=== PATIENT | male | born 1970 | race African-American/Black ===

== ENCOUNTER 2024-02-17 23:40 | Emergency (ER) | payer SELFPAY ==
--- NOTE | ~2024-02-17 | CT_ITS ---
EXAMINATION: CT HEAD WITHOUT CONTRAST (STROKE PROTOCOL) CLINICAL INFORMATION: Right-sided weakness, dysarthric speech COMPARISON: None available. TECHNIQUE: Contiguous axial imaging was performed from the skull base to vertex without intravenous administration of contrast. This CT examination was performed using dose optimization techniques as appropriate, variously including the following: *Automated exposure control *Adjustment of mA and/or kV according to patient size (this includes techniques or standardized protocols for targeted exams where dose is matched to indication/reason for exam; i.e. extremities or head) *Use of iterative reconstruction technique DLP: 808 mGy-cm FINDINGS: There is an acute intraparenchymal hemorrhage in the left basal ganglia measuring 4.1 x 1.6 x 2.8 cm. There is a rim of localized edema with slight mass effect and 0.2 cm of rightward midline shift. There is no evidence of acute territorial infarction. Muhammad to white matter differentiation is well preserved. No extra-axial fluid collections are identified. The ventricles are normal in size. There is mild periventricular white matter hypoattenuation consistent with chronic small vessel ischemic disease. Hypoattenuating focus in the right basal ganglia is suggestive of a chronic lacunar infarct. No acute fracture is seen. There is right occipital scalp soft tissue thickening with punctate hyperdensities, which may be chronic. The mastoid air cells and visualized portions of the paranasal sinuses are well-aerated. CT/CT head for stroke IMPRESSION: 1. Acute intraparenchymal hemorrhage in the left basal ganglia measuring 4.1 x 1.6 x 2.8 cm. Mild surrounding edema and 0.2 cm of rightward midline shift. 2. Soft tissue thickening in the right scalp with multiple punctate hyperdensities/foreign bodies, which may be chronic. Clinical correlation recommended. This critical result was discussed with Dr. Hardy on 02/18/2024 12:08 AM, and it was ascertained that the content and urgency of the report was understood at the time of direct communication.
--- NOTE | 2024-02-17 23:47 | ED_ITS ---
HPI - Neuro Symptoms/Deficit General Chief Complaint: Stroke Stated Complaint: ? stroke Time Seen by Provider: 02/17/24 23:47 Source: patient and family () Mode of arrival: wheelchair Limitations: other (Dysarthric speech) History of Present Illness HPI Narrative: 53-year-old male with a history of hypertension and stroke who was brought to emergency department by his for evaluation of right-sided weakness and difficulty speaking. According to the the patient has had many strokes in the past and had a large stroke in 2019 with right-sided weakness. She states that his right-sided weakness did improve over time with physical therapy but was never back to normal. The patient was sitting outside on the porch and around 22:30 hours he told his that he thought that the cold air was messing with with his nerves. He put on socks in warmer close and went back outside. His then noted that he had right arm weakness and he was ?not making sense ?. She was concerned that he was having a stroke and brought him to the emergency department for evaluation. From triage she was brought immediately back into the emergency department and I evaluated him in a wheelchair. The patient was oriented to person, place, he knew the month but did not give his correct age. His speech is this arthritic but comprehensible. Patient was sent immediately to the CT scan for CT scan of the head without IV contrast then brought back to a room in the emergency department. On the CT scan the patient has an obvious left intraparenchymal bleed. Related Data Allergies Allergy/AdvReac Type Severity Reaction Status Date / Time No Known Allergies Allergy Verified 02/18/24 00:17 [No Known Allergies*] Review of Systems 2 Review of Systems: Yes Other (Difficult to obtain secondary dysarthric speech) [facility] Past Medical History [facility] Narrative: Past medical history: Hypertension-not on medications, stroke 2019 treated at [facility]. Social history: He lives at home with his . He does smoke cigarettes. He denies alcohol use. He does smoke marijuana. He denies any other drug use. Social History Social History Smoked in Last 30 Days: Yes Use of substances other than those prescribed or required for medical reasons: No Substance Use Type: Marijuana Advance Directives: No Advance Directives Information Provided: No Physical Exam 2 Vital Signs: Vital Signs: Last Vital Signs Temp 98.2 F 02/18/24 00:29 Pulse 89 02/18/24 00:57 Resp 18 02/18/24 00:29 BP 187/101 H 02/18/24 00:57 Pulse Ox 97 02/18/24 00:29 O2 Del Method Room Air 02/18/24 00:29 BMI result Body Mass Index 33.9 Initial blood pressure 240/130, repeat blood pressure 210/122, heart rate 80, respiratory 18, O2 saturation 97% on room air Exam: General: Awake, alert, obvious right upper and lower extremity weakness with dysarthric speech Head: Normocephalic, atraumatic EENT: PERRL, Lids normal, sclera normal, conjunctiva normal, nose normal , ears normal, throat without erythema or exudates Neck: Supple, no adenopathy Lung: breath sounds symmetric, no wheezing, rales or rhonchi Chest: symmetric movement, nontender Heart: regular rate and rhythm, normal S1, S2 no murmurs or rubs Abdomen: soft, non-tender, nondistended, normal bowel sounds Back: no vertebral tenderness, no CVAT Extremities: no deformities, moves all extremities symmetrically Neuro: General: Awake, alert, dysarthric speech, able to tell me his name, knew the month but did not know his age Cranial nerves 2-12: Right facial droop Strength: Minimal movement of the right upper extremity, weakness of the right lower extremity compared to left Psych: Pleasant, cooperative Medications Administered Generic Name Dose Route Start Last Admin Trade Name Freq PRN Reason Stop Dose Admin Nicardipine HCl 25 mg/ Sodium 260 mls @ 0 mls/hr 02/18/24 00:15 02/18/24 00:57 Chloride IVCONT 10 mg/hr .Q0M ANDRIA 104 mls/hr Titration Protocol Per Protocol Medical Decision Making Medical Decision Making [facility] Narrative: 53-year-old male with a history of hypertension not on medications, stroke 2021 with right-sided symptoms, tobacco use disorder, marijuana use disorder, who presents emergency department for evaluation of dysarthric speech, right facial droop, right upper extremity weakness greater than right lower extremity weakness with last well-known time 22:30 hours. Presentation to the emergency department the patient had stroke-like symptoms and was brought immediately to CT scan for CT of the head without IV contrast. CT scan revealed acute intraparenchymal hemorrhage in the left basal ganglion measuring 4.1 x 1.6 x 2.8 cm. Mild surrounding edema with 0.2 cm of rightward midline shift. Patient's blood pressure was significantly elevated at 240/130. Repeat blood pressure was also elevated at 2 10/122. Patient was started on nicardipine with parameters to lower his systolic blood pressure to 140-160. Differential diagnosis: ?Includes but is not limited to stroke, intracranial bleed, electrolyte abnormalities, anemia Following evaluation was ordered: CBC, BMP, liver panel, PT/INR, PTT, troponin, point of care glucose, urinalysis, drug screen, ethanol level, CT scan of the brain without IV contrast, EKG Patient was initially treated with the following: Nicardipine drip titrate to systolic blood pressure 142/1 6 Course: 01:04 My interpretation patient's laboratory evaluation is as follows: WBC normal 4900, no anemia with an H&H of 15 and 45.5. Platelet count was normal 254,000. PT/INR PTT were normal. CMP was unremarkable except for glucose of 116. Ethanol was below detectable limits. Urinalysis and urine tox screen are pending. I did discuss the patient's presentation with the attending narcotics agent in the neuro ICU at [facility], Dr. Rosales and she accept the patient as an ED to ICU transfer. Patient is on a nicardipine drip and blood pressure is now down to 180/90, we will continue to titrate the drip in order to get the patient's systolic blood pressure between 140 and 160. Patient will be transferred by ALS ambulance Admission/Observation Consideration of admission/observation: Escalation of care including admission/observation considered Consult Healthcare Provider Management of the patient was discussed with: Grocery Clerk [facility] Neuro ICU narcotics agent, Dr. Albright Lab Data [facility] Lab Attestation statement: I reviewed the patient's lab results. 02/18/24 00:09 02/18/24 00:09 Labs: Lab Results 02/18/24 02/18/24 02/18/24 Range/Units 00:09 00:09 00:23 WBC 4.9 (4.8-10.8) X10*3/uL RBC 4.93 (4.60-5.80) X10*6/uL Hgb 15.0 (14.0-18.0) g/dl Hct 45.5 (42.0-52.0) % MCV 92.3 (80.0-98.0) fL MCH 30.4 (27.0-33.0) pg MCHC 33.0 (31.0-36.0) g/dl RDW 14.2 (11.0-16.0) % Plt Count 254 (160-400) X10*3/uL MPV 10.7 (9.4-12.4) fL Immature Gran % (Auto) 0.2 (0.0-0.4) % Neut % (Auto) 31.0 L (45-73) % Lymph % (Auto) 54.7 H (20-40) % Cla[place] % (Auto) 9.2 (2-11) % Eos % (Auto) 3.7 (0-4) % Baso % (Auto) 1.2 (0-2) % Lymph # (Auto) 2.7 (1.2-4.9) X10*3/uL [place] # (Auto) 0.5 (0.1-1.2) X10*3/uL Eos # (Auto) 0.2 (0.0-0.4) X10*3/uL Baso # (Auto) 0.1 (0.0-0.2) X10*3/uL Abs Immat Gran (auto) 0.01 (0.00-0.03) X10*3/uL Absolute Neuts (auto) 1.5 L (2.0-8.3) x10*3/uL Absolute Nucleated RBC 0.000 (0.0-0.012) X10*3/uL Nucleated RBC % (auto) 0.0 (0.0-0.2) /100WBC PT 10.7 L (11.1-13.3) SEC Whole Blood PT (11.1-13.5) sec INR 0.9 (0.9-1.1) Whole Blood INR (0.9-1.1) APTT 44.5 H (26.0-36.8) SEC Sodium 143 (135-145) mmol/L Potassium 4.5 (3.3-5.1) mmol/L Chloride 107 (96-108) mmol/L Carbon Dioxide 29 (22-29) mmol/L Anion Gap 12 (12-20) BUN 16 (9-16) mg/dL Creatinine 0.86 (0.5-1.4) mg/dL Estim Creat Clear Calc 124.6 Estimated GFR > 60 POC Glucose 111 (60-115) mg/dL Random Glucose 116 H Cancelled (60-115) mg/dL Calcium 9.9 (8.4-10.2) mg/dL Total Bilirubin 0.2 (0.0-1.0) mg/dL Direct Bilirubin < 0.2 (0.0-0.5) mg/dL AST 16 (5-37) U/L ALT 14 (0-40) U/L Alkaline Phosphatase 87 (39-117) U/L Total Creatine Kinase 305 H (38-174) U/L Troponin I High Sens 20.2 (<3.5-35.0) ng/L Total Protein 7.7 (6.5-8.0) g/dL Albumin 4.6 (3.5-5.0) g/dL Urine Color Urine Appearance Urine pH (5.0-9.0) Ur Specific Blackstone (1.005-1.025) Urine Protein (Neg-Trace) mg/dL Urine Glucose (UA) (Negative) mg/dL Urine Ketones (Negative) mg/dL Urine Blood (Negative) Urine Nitrite (Negative) Ur Leukocyte Esterase (Negative) Urine RBC (0-2) /HPF Urine WBC (0-5) /HPF Ur Squamous Epith Cells (0-2) /HPF Urine Bacteria (None Seen) Hyaline Casts (0-2) /LPF Ethyl Alcohol < 10 mg/dL 02/18/24 02/18/24 Range/Units 00:42 00:55 WBC (4.8-10.8) X10*3/uL RBC (4.60-5.80) X10*6/uL Hgb (14.0-18.0) g/dl Hct (42.0-52.0) % MCV (80.0-98.0) fL MCH (27.0-33.0) pg MCHC (31.0-36.0) g/dl RDW (11.0-16.0) % Plt Count (160-400) X10*3/uL MPV (9.4-12.4) fL Immature Gran % (Auto) (0.0-0.4) % Neut % (Auto) (45-73) % Lymph % (Auto) (20-40) % Clarendon % (Auto) (2-11) % Eos % (Auto) (0-4) % Baso % (Auto) (0-2) % Lymph # (Auto) (1.2-4.9) X10*3/uL [place] # (Auto) (0.1-1.2) X10*3/uL Eos # (Auto) (0.0-0.4) X10*3/uL Baso # (Auto) (0.0-0.2) X10*3/uL Abs Immat Gran (auto) (0.00-0.03) X10*3/uL Absolute Neuts (auto) (2.0-8.3) x10*3/uL Absolute Nucleated RBC (0.0-0.012) X10*3/uL Nucleated RBC % (auto) (0.0-0.2) /100WBC PT (11.1-13.3) SEC Whole Blood PT 12.7 (11.1-13.5) sec INR (0.9-1.1) Whole Blood INR 1.1 (0.9-1.1) APTT (26.0-36.8) SEC Sodium (135-145) mmol/L Potassium (3.3-5.1) mmol/L Chloride (96-108) mmol/L Carbon Dioxide (22-29) mmol/L Anion Gap (12-20) BUN (9-16) mg/dL Creatinine (0.5-1.4) mg/dL Estim Creat Clear Calc Estimated GFR POC Glucose (60-115) mg/dL Random Glucose (60-115) mg/dL Calcium (8.4-10.2) mg/dL Total Bilirubin (0.0-1.0) mg/dL Direct Bilirubin (0.0-0.5) mg/dL AST (5-37) U/L ALT (0-40) U/L Alkaline Phosphatase (39-117) U/L Total Creatine Kinase (38-174) U/L Troponin I High Sens (<3.5-35.0) ng/L Total Protein (6.5-8.0) g/dL Albumin (3.5-5.0) g/dL Urine Color Yellow Urine Appearance Clear Urine pH 6.5 (5.0-9.0) Ur Specific Blackstone 1.020 (1.005-1.025) Urine Protein Negative (Neg-Trace) mg/dL Urine Glucose (UA) Negative (Negative) mg/dL Urine Ketones Trace (Negative) mg/dL Urine Blood Negative (Negative) Urine Nitrite Negative (Negative) Ur Leukocyte Esterase Trace H (Negative) Urine RBC 0-2 (0-2) /HPF Urine WBC 0-5 (0-5) /HPF Ur Squamous Epith Cells 0-2 (0-2) /HPF Urine Bacteria None Seen (None Seen) Hyaline Casts 0-2 (0-2) /LPF Ethyl Alcohol mg/dL Independent Interpretation I performed an independent interpretation of an: EKG Interpretation: My interpretation patient's 12 EKG done at 00:16 hours is as follows: Normal sinus rhythm rate of 76, normal HI interval, QRS duration QTC interval, less than [address] segment depression in leads 2, 3 and AVF with inverted T-waves in leads 2, 3, AVF and V1 and V6-these could be secondary to ischemia or may be changes secondary to increased into her cranial pressure. Radiology Impression Discussion of test interpretation with radiology: I have reviewed the radiologist's reading. Radiologist Impression: EXAMINATION: CT HEAD WITHOUT CONTRAST (STROKE PROTOCOL) CLINICAL INFORMATION: Right-sided weakness, dysarthric speech FINDINGS: There is an acute intraparenchymal hemorrhage in the left basal ganglia measuring 4.1 x 1.6 x 2.8 cm. There is a rim of localized edema with slight mass effect and 0.2 cm of rightward midline shift. There is no evidence of acute territorial infarction. Muhammad to white matter differentiation is well preserved. No extra-axial fluid collections are identified. The ventricles are normal in size. There is mild periventricular white matter hypoattenuation consistent with chronic small vessel ischemic disease. Hypoattenuating focus in the right basal ganglia is suggestive of a chronic lacunar infarct. No acute fracture is seen. There is right occipital scalp soft tissue thickening with punctate hyperdensities, which may be chronic. The mastoid air cells and visualized portions of the paranasal sinuses are well-aerated. IMPRESSION: 1. Acute intraparenchymal hemorrhage in the left basal ganglia measuring 4.1 x 1.6 x 2.8 cm. Mild surrounding edema and 0.2 cm of rightward midline shift. 2. Soft tissue thickening in the right scalp with multiple punctate hyperdensities/foreign bodies, which may be chronic. Clinical correlation recommended. This critical result was discussed with Dr. Hardy on 02/18/2024 12:08 AM, and it was ascertained that the content and urgency of the report was understood at the time of direct communication. Dictated By: Cecil Dos Santos MD Independent Historian Clinical information obtained from an independent historian. History obtained from or confirmed by: Spouse Chronic Conditions Patient?s care impacted by: Hypertension Critical Care Time Critical Care Time Total Critical Care Time: 80 Discharge Plan Discharge Clinical Impression: Intracranial hemorrhage, Hypertensive urgency Patient Disposition: [facility] Hospital Transfer Details: [facility] neuro ICU, accepting attending is Dr. Rosales Print Language: Kazakh
--- NOTE | 2024-02-17 23:49 | ECG_ITS ---
Test Reason : BRAIN BLEED Blood Pressure : / mmHG Vent. Rate : 076 BPM Atrial Rate : 076 BPM P-R Int : 164 ms QRS Dur : 096 ms QT Int : 388 ms P-R-T Axes : 065 059 270 degrees QTc Int : 436 ms Normal sinus rhythm Minimal voltage criteria for LVH, may be normal variant ( Noble product ) ST & T wave abnormality, consider inferolateral ischemia Abnormal ECG No previous ECGs available Referred By: Usman Hardy Electronically Signed By:NAYELY HAYWARD MD
[2024-02-18] VITALS (8 sets, daily range): BP systolic 187–219; BP diastolic 101–127; PULSE 75–93; RESP 18–19; TEMP 36.8; O2SAT 97; BMI 33.9
[2024-02-18 00:17] LABS: MANUAL DIFF FLAG NO
[2024-02-18 00:20] LABS: Basophils Absolute Auto 0.1 X10*3/uL (0.0-0.2); Basophils Percent Auto 1.2 % (0-2); Eosinophils Absolute Auto 0.2 X10*3/uL (0.0-0.4); Eosinophils Percent Auto 3.7 % (0-4); Hematocrit 45.5 % (42.0-52.0); Imm Gran Abs Auto 0.01 X10*3/uL (0.00-0.03); Imm Gran Pct Auto 0.2 % (0.0-0.4); Lymphocytes Absolute Auto 2.7 X10*3/uL (1.2-4.9); Lymphocytes Percent Auto 54.7 % (20-40); Mean Corpuscular Hemoglobin 30.4 pg (27.0-33.0); Mean Corpuscular Volume 92.3 fL (80.0-98.0); Mean Platelet Volume 10.7 fL (9.4-12.4); Monocytes Absolute Auto 0.5 X10*3/uL (0.1-1.2); Monocytes Percent Auto 9.2 % (2-11); Neutrophils Absolute Auto 1.5 x10*3/uL (2.0-8.3); Platelet Count 254 X10*3/uL (160-400); Red Blood Count 4.93 X10*6/uL (4.60-5.80); Red Cell Distribution Width 14.2 % (11.0-16.0); White Blood Count 4.9 X10*3/uL (4.8-10.8)
[2024-02-18] MEDS: niCARdipine HCL 25 MG in 0.9 % Sodium Chloride 250 ML 52 MG IVCONT (00:25)
[2024-02-18 00:26] LABS: INTERNATIONAL NORM RATIO 0.9 (0.9-1.1); Prothrombin Time 10.7 SEC (11.1-13.3)
[2024-02-18 00:29] LABS: Partial Thromboplastin Time 44.5 SEC (26.0-36.8)
[2024-02-18 00:31] LABS: Glucose, Whole Blood 111 mg/dL (60-115)
[2024-02-18 00:32] LABS: Stroke Lab Use COMPLETE
--- OUTSIDE RECORDS SUMMARY | 2024-02-18 00:37 | XMS_ITS | Continuity of Care Document ---
Author Organization [facility] ter Address [address] [place] [id number]- Care Team Providers Care Ethnology Professor Name Role Phone Pascale Levin MD Primary Care Physician [phone] Encounter [facility] Date(s): 05/08/20 - 05/08/[address] [address]- [facility] Encounter Diagnosis Hypertension(Final) - 05/08/20 Discharge Disposition: A-D/C Home Attending Physician: Monae Morin MD Admitting Physician: Monae Morin MD Referring Physician: Not on Staff, Referring MD Allergies, Adverse Reactions, Alerts Substance Reaction Severity Status NKA Active Immunizations Given and Recorded Vaccine Date Status Refusal Reason tetanus/diphtheria/pertussis, acel(Tdap) 02/13/19 Given Medications docusate sodium 100 mg oral capsule 100, mg, 1, capsule, By Mouth, 2 times a day, 0, 0, 03/11/07 2:13:51, Print SKY Number, [id number], Constant Indicator Start Date: 03/11/07 Status: Ordered Percocet-5/325 325 mg-5 mg oral tablet 2, tablet, By Mouth, Every 4 hours, 0, 0, 03/11/07 2:14:37, Print SKY Number, [id number], Constant Indicator Start Date: 03/11/07 Status: Ordered Results Radiology Reports * Exam Date Time Procedure Performing Provider Status 05/08/20 6:57 AM Chest Portable Luly López (Verified) Notes: (Chest Portable) Reason For Exam: Shortness of Breath RESULT: Chest Portable Examination: Portable chest performed on 05/08/2020. History: Shortness of breath. Findings: A frontal view of the chest is compared to a prior study dated 05/28/2008. The cardiac and mediastinal silhouettes are within normal limits. The lungs are clear. The osseous and soft tissue structures are unremarkable. IMPRESSION: There is no acute cardiopulmonary disease. WSN: [id number] Ordering Physician: Brady Galvin Dictated By: Abbey Falk MD Dictated Date/Time: 05/08/20 9:36 am Reviewed By: Abbey Falk MD Signed By: Abbey Falk MD Signed Date/Time: 05/08/20 9:36 am Transcribed By: HENRY Transcribed Date/Time: 05/08/20 9:35 am Vital Signs Most recent to oldest [Reference Range]: 1 2 3 Oxygen Saturation [94-100 %] 99 % (05/08/20 9:58 AM) 98 % (05/08/20 8:01 AM) 99 % (05/08/20 6:35 AM) Pulse Rate [55-90 bpm] 92 bpm *H* (05/08/20 9:58 AM) 90 bpm (05/08/20 8:01 AM) 82 bpm (05/08/20 7:27 AM) Blood Pressure [90-138/55-84 mm Hg] 217/129mm Hg *H* (05/08/20 9:58 AM) 192/122mm Hg *H* (05/08/20 8:01 AM) 200/124mm Hg *H* (05/08/20 7:42 AM) Respiratory Rate [16-30 br/min] 16 br/min (05/08/20 9:58 AM) 16 br/min (05/08/20 8:01 AM) 15 br/min *L* (05/08/20 6:35 AM) Temperature [96.8-100.4 DegF] 98.1 DegF (05/08/20 6:02 AM) Mode of Delivery (Oxygen) Room air (05/08/20 9:58 AM) Room air (05/08/20 8:01 AM) Room air (05/08/20 6:35 AM) Blood pressure sites Arm, left (05/08/20 9:58 AM) Arm, left (05/08/20 8:01 AM) Arm, left (05/08/20 6:35 AM) Temperature Route Oral (05/08/20 6:02 AM)
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
[2024-02-18 00:38] LABS: Alanine Aminotransferase 14 U/L (0-40); Albumin Level 4.6 g/dL (3.5-5.0); Alkaline Phosphatase 87 U/L (39-117); Anion Gap 12 (12-20); Aspartate Amino Transferase 16 U/L (5-37); Bilirubin Direct < 0.2 mg/dL (0.0-0.5); Bilirubin Total 0.2 mg/dL (0.0-1.0); Blood Urea Nitrogen 16 mg/dL (9-16); Calcium 9.9 mg/dL (8.4-10.2); Carbon Dioxide 29 mmol/L (22-29); Chloride 107 mmol/L (96-108); Creatinine Clr Calc Pharmacy 124.6; Estimated Glomerular Filt Rate > 60; Ethanol < 10 mg/dL; Glucose Random 116 mg/dL (60-115); Potassium 4.5 mmol/L (3.3-5.1); Sodium 143 mmol/L (135-145); Total Protein 7.7 g/dL (6.5-8.0)
[2024-02-18 00:39] LABS: Troponin-I High Sensitivity 20.2 ng/L (<3.5-35.0)
[2024-02-18 00:47] LABS: Prothrombin Time Whole Bld POC 12.7 sec (11.1-13.5); ~PT, ~INR - Anti Coag Clinic 1.1 (0.9-1.1)
[2024-02-18 01:02] LABS: Appearance Urine Clear; Color Urine Yellow; Glucose Urine UA Negative (Negative); Leukocyte Esterase Urine Trace (Negative); Nitrite Urine Negative (Negative); PH 6.5 (5.0-9.0); UMIC TRIGGER UACC YES; Urine Blood Negative (Negative); Urine Ketones Trace mg/dL (Negative); Urine Protein Negative (Neg-Trace)
[2024-02-18 01:07] LABS: Bacteria Urine None Seen (None Seen); Hyaline Casts Urine 0-2 /LPF (0-2); RBC Urine 0-2 /HPF (0-2); Squamous Epithelial Cell Urine 0-2 /HPF (0-2); WBC Urine 0-5 /HPF (0-5)
[2024-02-18 01:12] LABS: Amphetamine Screen Urine Not Detected (Not Detect); Barbiturates, Urine Not Detected (Not Detect); Benzodiazepines Screen Urine Not Detected (Not Detect); Buprenorphine Scr Not Detected (Not Detect); Cannabinoid Screen Urine Not Detected (Not Detect); Cocaine Screen Urine Not Detected (Not Detect); Fentanyl, urine Not Detected (Not Detect); Methadone Screen, Urine Not Detected (Not Detect); Opiate Screen Urine Not Detected (Not Detect); Oxycodone Screen Urine Not Detected (Not Detect); Phencyclidine Screen Urine Not Detected (Not Detect)
--- NOTE | 2024-02-18 01:44 | PC.NURSE ---
Nursing report provided to Valarie LORD at [facility]. Pt is in transit via ambulance. at bedside aware.
== END 2024-02-18 01:48 | disposition short-term general hospital (02) ==
PROVIDERS: Emergency Provider Emergency Medicine Emergency Medical Services
DX: I61.0 Nontraumatic intracerebral hemorrhage in hemisphere, subcortical (principal); R47.1 Dysarthria and anarthria; R29.810 Facial weakness; G81.91 Hemiplegia, unspecified affecting right dominant side; R29.708 NIHSS score 8; I16.0 Hypertensive urgency; I10 Essential (primary) hypertension; Z86.73 Personal history of transient ischemic attack (TIA), and cerebral infarction without residual deficits
CPT/HCPCS: 36415; 70450; 80048; 80076; 80307; 81001; 81003; 82550; 82947; 84484; 85025; 85610; 85730; 93005; 96365; 99285; J2404

== ENCOUNTER → 2024-02-17 23:49 | Outpatient (BNV) | payer SELFPAY | PROVIDERS: Emergency Provider Emergency Medicine Emergency Medical Services; Visit Provider Internal Medicine Cardiovascular Disease | DX: R94.31 Abnormal electrocardiogram [ECG] [EKG] (principal) | CPT/HCPCS: 93010 ==

== ENCOUNTER 2024-05-28 13:30 | Outpatient (RCR) | payer BC, SELFPAY ==
--- NOTE | 2024-04-16 15:56 | MHC.OT.EP ---
[address] [phone] Occupational Therapy Plan of Care Patient Name: Adriano Sarabia Date of Evaluation: 04/16/24 Diagnosis: Pain Location: intermittent / fatigue Pain Score: 3 Pain Scale Used: Numeric (0 - 10) Aggravating Factors: could not quantify but reported pain/ fatigue w/ use of arm and decreased dexterity of digits/ hand Alleviating Factors: Assessment: Pt is a 53 yr. old R hand dominant male who was brought to the ED on 02/18/2024 for sx's of a R CVA ; pt's could not understand what he was saying and he had R UE weakness. He was sent to [facility] due to a brain hemorrhage. 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 Thank you once again for your referral.
== END 2024-06-13 13:57 | disposition home or self-care (01) ==
LOC: HO.OT 13:30
PROVIDERS: PCP Internal Medicine; Visit Provider Internal Medicine
DX: G81.91 Hemiplegia, unspecified affecting right dominant side (principal)
CPT/HCPCS: 97110; 97112; 97166; 97535

== ENCOUNTER 2024-05-28 14:00 | Outpatient (RCR) | payer BC, SELFPAY ==
[2024-04-24 10:08] VITALS: BP 127/70; PULSE 70; O2SAT 96
== END 2024-08-27 09:54 | disposition home or self-care (01) ==
LOC: HO.PT 14:00
PROVIDERS: PCP Internal Medicine; Visit Provider Internal Medicine
DX: R47.01 Aphasia (principal)
CPT/HCPCS: 97110; 97112; 97162